=== PATIENT | female | born 1950 | race Caucasian/White ===

== ENCOUNTER → 2020-12-04 | Outpatient (CLI) | payer MEDICARE ==
[~2020-12-04] MED LIST: LIDOCAINE 1% Multi-Dose 20 ML VIAL. INJ ONE
--- NOTE | 2020-12-04 10:39 | RAD ---
EXAM: 1. ULTRASOUND-GUIDED CORE BIOPSY RIGHT BREAST WITH CLIP PLACEMENT. 2. POSTCLIP DIAGNOSTIC RIGHT MAMMOGRAPHY. HISTORY: Right breast mass. Ultrasound-guided biopsy is requested. FINDINGS: The procedure along with its risks and benefits were explained to the patient. She agreed to proceed. A timeout procedure was performed. Sonographic evaluation of the right breast redemonstrates the lesion of concern. It is seen as a hypo echoic triangular mass at the 12:00 position 1 cm from the nipple measuring 7 x 6 mm. The overlying s kin was sterilely prepped and infiltrated with 1% lidocaine for local anesthesia. Under ultrasound gu idance, 2 core needle specimens of the target lesion were obtained using a 14-gauge biopsy device. Th rowan were submitted in formalin. A postbiopsy clip was placed under ultrasound guidance. Pressure was held to hemostasis. There were no immediate complications. Full-field digital mammographic views of the right breast were obtained in CC and MLO projections and interpreted on a dedicated workstation. The postbiopsy clip is just superior to the nipple and sligh tly lateral. This does not correspond with the prior mammographic region of interest, which is more p osterior and superior. No well-defined mammographic abnormality is seen at the prior site of concern. IMPRESSION: 1. Successful ultrasound-guided right breast biopsy with clip placement. 2. The postbiopsy clip does not correspond with the prior mammographic region of interest, which is m ore posterior and superior. This implies there is no sonographic correlate for the mammographic site of concern, which is most likely benign. If the results of the current biopsy prove benign, six-month follow-up right diagnostic mammography is recommended. Electronically signed by: Adia Fleming MD (12/04/2020 10:37 AM) [facility]
--- NOTE | 2020-12-05 16:17 | PATHOLOGY ---
[facility] Accession Number: [id number] . 01 Material submitted: . breast - RIGHT BREAST MASS 12 O'CLOCK 1 CMFN .7 CM. Modifiers: right, 12:00, 1CMFN . 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 . (JPM:mml; 12/05/2020) M 12/05/2020 1150 Local . 02 Comment: Sections of the right breast mass 12:00, 1.0 cm from nipple needle biopsy reveal segments of breast tissue showing focal stromal fibrosis. The area of fibrosis contains several small ducts and lobules showing focal mild duct ectasia and a rare microcalcification. There is no atypia or evidence of malignancy. . (JPM:mml; 12/05/2020) . 02 Electronically signed: . Gian Sanchez MD, Pathologist NPI- [id number] . 01 Gross description: . The specimen is received in formalin, labeled "Andreina Zhang, right breast 12:00 1 cm FN". Received are 2 needle cores of fibrofatty tissue measuring 1.7 x 0.4 x 0.2 cm in aggregate dimensions. The specimen is submitted entirely in cassettes A1-A2. The specimen is collected at 0934 and placed into formalin at 0935 on 12/04/2020. The specimen is removed from formalin at 2150 on 12/04/2020. The total formalin fixation time is 12 hours and 15 minutes. ([facility]; 12/04/2020) NRI/NRI 12/04/2020 1638 Local . 02 Pathologist provided ICD-10: N60.31, N60.41 . 02 CPT . 308598 Specimen Comment: A courtesy copy of this report has been sent to [phone], [phone] Specimen Comment: [id number] Specimen Comment: Report sent to / DR HELLER Specimen Comment: A duplicate report has been generated due to demographic updates. Performed at: 01 [facility] [address] [facility] [address], [place] [id number] MD Wilver Ruggiero MD Phone: [phone] Performed at: 02 [facility] [place] [address] [place], [place] [id number] MD Gian Sanchez MD Phone: [phone]
== END | disposition home or self-care (01) ==
LOC: US 08:45
PROVIDERS: ATTEND Family Medicine
DX: N63.11 Unspecified lump in the right breast, upper outer quadrant (principal); N60.31 Fibrosclerosis of right breast; N60.41 Mammary duct ectasia of right breast
CPT/HCPCS: 19083; 77065; 88305; A4648; C1819; J3490